=== PATIENT | female | born 1990 | race African-American/Black ===

== ENCOUNTER 2017-07-19 20:21 | Emergency (ER) | payer OTHER ==
[~2017-07-19] VITALS: Ht 165.1 cm; Wt 108.9 kg
[2017-07-19] MEDS ORDERED: TRAMADOL 50 MG50 MG PO (21:39)
[2017-07-19] MEDS ORDERED: AMOXICILLIN500 M1 PO (21:39)
== END 2017-07-19 21:58 | disposition home or self-care (01) ==
LOC: ER 20:21
DX: K08.89 Other specified disorders of teeth and supporting structures (principal)